=== PATIENT | female | born 1980 | race Caucasian/White ===

== ENCOUNTER 2018-06-05 12:44 | Outpatient (CLI) | payer OTHER | END 2018-06-05 12:45 | disposition home or self-care (01) | LOC: DTY/OP 12:44 | PROVIDERS: ATTEND Surgery | DX: E66.01 Morbid (severe) obesity due to excess calories (principal) | CPT/HCPCS: 97802 ==

== ENCOUNTER 2018-07-03 12:43 | Outpatient (CLI) | payer OTHER | END 2018-07-03 12:44 | disposition home or self-care (01) | LOC: DTY/OP 12:43 | PROVIDERS: ATTEND Family Medicine | DX: E66.01 Morbid (severe) obesity due to excess calories (principal) | CPT/HCPCS: 97802 ==

== ENCOUNTER 2018-08-03 12:31 | Outpatient (CLI) | payer OTHER | END 2018-08-03 12:32 | disposition home or self-care (01) | LOC: DTY/OP 12:31 | PROVIDERS: ATTEND Surgery | DX: E66.01 Morbid (severe) obesity due to excess calories (principal) | CPT/HCPCS: 97802 ==

== ENCOUNTER 2018-09-02 09:52 | Outpatient (CLI) | payer OTHER | END 2018-09-02 09:53 | disposition home or self-care (01) | LOC: DTY/OP 09:52 | PROVIDERS: ATTEND Family Medicine | DX: E66.01 Morbid (severe) obesity due to excess calories (principal) | CPT/HCPCS: 97802 ==